=== PATIENT | female | born 1955 | race Caucasian/White ===

== ENCOUNTER → 2018-01-06 20:58 | Outpatient (CLI) | payer BC ==
[2012-07-03 06:08] VITALS: BMI 25.6
== END | disposition home or self-care (01) ==
LOC: D.MAMMO 12-19 14:30
DX: Z12.31 Encounter for screening mammogram for malignant neoplasm of breast (principal)

== ENCOUNTER 2020-08-22 17:50 | Outpatient (CLI) | payer BC ==
[2020-04-07 12:30] VITALS: BMI 31.0
[~2020-08-22 17:50] MED LIST: ANDROGEL5 GM TP; BUPROPION XL300 MG PO; BYSTOLIC2.5 MG PO; COZAAR100 MG PO; HYDROCHLOROTH12.5 M1 PO; HYDROCODON-ACE1 EA10 PO; HYDROCODON-ACET15 ML PO; VALIUM5 MG PO
== END 2020-08-22 23:59 | disposition home or self-care (01) ==
LOC: D.MAMMO 17:50
PROVIDERS: ATTEND Specialist
DX: Z12.31 Encounter for screening mammogram for malignant neoplasm of breast (principal)